=== PATIENT | female | born 1965 ===

== ENCOUNTER → 2021-02-22 10:50 | Outpatient (CLI) | payer OTHER, SELFPAY ==
--- NOTE | ~2021-02-22 | XR_ITS ---
EXAMINATION: XR chest 2V DATE: 02/22/2021 11:13 INDICATION: Unspecified asthma TECHNIQUE: PA and lateral views of the chest are obtained. COMPARISON: None available FINDINGS: The lungs are free of acute opacities. There is no pleural effusion or pneumothorax. The ca rdiomediastinal silhouette is normal. There is moderate thoracic spondylosis. IMPRESSION: 1. No acute cardiopulmonary abnormality. Reviewed, dictated and finalized at location A.
== END ==
DX: J45.909 Unspecified asthma, uncomplicated (principal)
CPT/HCPCS: 71046

== ENCOUNTER 2023-04-24 18:57 | Emergency (ER) | payer OTHER, SELFPAY ==
--- NOTE | ~2023-04-24 | CT_ITS ---
EXAMINATION: CT abdomen pelvis wo con DATE: 04/24/2023 19:55 INDICATION: L flank pain, LLQ pain TECHNIQUE: Computed tomography (CT) of the abdomen and pelvis was performed without intravenous contr ast. Automated exposure control and iterative reconstruction technique were employed. The dose-length product was 702.68 mGy-cm. COMPARISON: None. FINDINGS: Lower thorax: Unremarkable Liver: Normal. Biliary/Gallbladder: Cholelithiasis, without inflammatory change No bile duct dilation. Pancreas: No duct dilation. Pancreatic head lipoma. Spleen: Normal. Adrenals:No mass. Kidneys: Mild left pelviectasis. No suspicious mass. No right hydronephrosis. GI tract: No small or large bowel dilation. Normal appendix. Mesentery/Peritoneum: No ascites, mass, or free air. Retroperitoneum: No mass. Pelvis: 3 mm calcification in the distal left ureter. The bladder is empty. Absent uterus. Soft Tissues: Soft tissues and body wall unremarkable. Bones: No acute osseous finding. IMPRESSION: 3 mm distal left ureteral calcification causing very mild obstructive uropathy. Reviewed, dictated and finalized at location K. IC [employer]
[2023-04-24 19:04] VITALS: BP 149/108; PULSE 110; RESP 20; TEMP 36.3; O2SAT 100
[2023-04-24 19:26] VITALS: BP 164/86; PULSE 74; O2SAT 99
[2023-04-24 19:35] LABS: Basophils Absolute Auto 0.1 K/mm3 (0.0-0.1); Basophils Percent Auto 0.7 % (0.2-1.2); Eosinophils Absolute Auto 0.3 K/mm3 (0-0.3); Eosinophils Percent Auto 3.7 % (0-4.4); Hematocrit 44.9 % (37.0-47.0); Hemoglobin 14.3 g/dL (12.0-15.0); Immature Granulocyte Absolute 0.02 K/mm3 (0.00-0.031); Immature Granulocyte Percent A 0.3 % (0-0.5); Lymphocytes Absolute Auto 2.03 K/mm3 (0.9-3.2); Lymphocytes Percent Auto 27.1 % (18.3-44.2); Mean Corpuscular HGB Conc 31.8 g/dl (32-36); Mean Corpuscular Hemoglobin 27.1 pg (26-34); Mean Corpuscular Volume 85.2 fl (80-100); Mean Platelet Volume 9.3 fl (7.4-10.4); Monocytes Absolute Auto 1.1 K/mm3 (0.1-0.6); Monocytes Percent Auto 14.2 % (2.6-8.5); Neutrophils Absolute Auto 4.1 K/mm3 (1.3-6.7); Platelet Count Result 223 k/mm3 (150-375); Red Blood Count 5.27 M/mm3 (4.2-5.4); Red Cell Distribution Width 12.7 % (11.5-14.5); White Blood Count 7.5 K/mm3 (4.5-10.0)
[2023-04-24 19:45] LABS: Alanine Aminotransferase 26 U/L (6-35); Albumin Level 4.3 g/dL (3.5-5.1); Alkaline Phosphatase 83 U/L (38-126); Anion Gap 10 mmol/L (8-16); Aspartate Amino Transferase 33 U/L (14-36); Bilirubin,Total 0.5 mg/dL (0.2-1.3); Blood Urea Nitrogen 17 mg/dL (7-17); Calcium 9.1 mg/dL (8.4-10.2); Carbon Dioxide 23 mmol/L (22-30); Chloride 109 mmol/L (98-107); Estimated CRCL calculation 81 ml/min; Estimated Glomerular Filt Rate > 60; Glucose 97 mg/dL (65-110); Lipase 53 U/L (23-300); Potassium 4.1 mmol/L (3.4-5.0); Sodium 142 mmol/L (137-145)
--- NOTE | 2023-04-24 20:00 | PC.NURSE ---
Pt refused medications due to not having any nausea or pain at the moment. MD tapia.
--- NOTE | 2023-04-24 20:02 | ED.ABDPAIN ---
HPI - Abdominal Pain General Chief Complaint: Abdominal Pain Stated Complaint: LLQ and L lower back pain Time Seen by Provider: 04/24/23 19:09 Source: patient Mode of arrival: ambulatory Limitations: no limitations History of Present Illness HPI narrative: Patient is a 58-year-old female who presents the ED with report of left-sided abdominal and flank pain. Patient reports the pain began suddenly around 6:00 p.m. today after getting out of shower. Pain has been constant since then. Radiates from her left mid back around to her left-sided abdomen. Patient denies history of similar pain. She does report a history of kidney stones 30 years ago. Patient reports nausea, denies vomiting. Denies diarrhea, constipation, dysuria, hematuria. She does report URI symptoms including fever and cough for the last 2 days. She did take Advil earlier today. Related Data Allergies Allergy/AdvReac Type Severity Reaction Status Date / Time No Known Allergies Allergy Verified 04/24/23 21:05 Review of Systems Review of Systems: CONSTITUTIONAL: See HPI. RESPIRATORY: See HPI. GASTROINTESTINAL: See HPI. GENITOURINARY: Denies dysuria or hematuria. MUSCULOSKELETAL: See HPI. NEUROLOGIC: Denies headache, dizziness, numbness, or weakness. All systems reviewed & are unremarkable except as noted in HPI and below Exam Narrative: GENERAL: Well appearing, obese with BMI of 31.0, non-toxic, in no acute distress. HEAD: Normocephalic, atraumatic. RESPIRATORY: Airway patent, respirations nonlabored. Clear to auscultation bilaterally, no rales, rhonchi, wheezing. CARDIOVASCULAR: Regular rate and rhythm without murmurs, rubs, or gallops. ABDOMINAL: Soft, mild tenderness palpation in left lower quadrant. No rebound, nondistended. Normoactive BS. MUSCULOSKELETAL: Moves all extremities. No gross deformities. Mild tenderness to palpation throughout left lower lumbosacral region. No midline spinal tenderness. SKIN: Warm, dry, normal color. NEURO: A&O X3. Speech clear. Cranial nerves II-XII grossly intact. No ataxic movements. PSYCHIATRIC: Appropriate mood and affect. Normal interaction. Course Vital Signs Vital signs: Vital Signs Temperature 97.4 F L 04/24/23 19:04 Pulse Rate 110 H 04/24/23 19:04 Respiratory Rate 20 04/24/23 19:04 Blood Pressure 149/108 H 04/24/23 19:04 Pulse Oximetry 100 04/24/23 19:04 Oxygen Delivery Room Air 04/24/23 19:04 Temperature 97.4 F L 04/24/23 19:04 Pulse Rate 74 04/24/23 19:26 Respiratory Rate 20 04/24/23 19:04 Blood Pressure 164/86 H 04/24/23 19:26 Pulse Oximetry 99 04/24/23 19:26 Oxygen Delivery Room Air 04/24/23 19:04 MDM - Abdominal Pain MDM Narrative Medical decision making narrative: Patient presented to ED with left flank and abdominal pain onset today. Associated with nausea, no other significant associated symptoms. Reporting URI symptoms for last 2 days. Vitals stable upon arrival. Patient in no acute distress upon my evaluation. CBC without leukocytosis. CMP unremarkable. UA with moderate blood, 2+ leuk esterase, 21-[address] abdomen pelvis obtained and showing 3 mm distal left ureteral stone. Mild obstructive uropathy. Attempted to provide patient with pain medication, nausea medication, fluids, however she refused all of these. States she is no longer having any pain or nausea. Resting comfortably. Will give dose of ceftriaxone in the ED given abnormal UA findings. Patient did report having fevers today in addition to 2 day history of URI symptoms. COVID testing resulted positive in the ED. This does likely explain the fevers. However, given presence of fevers, stone, UA findings, discussed case with Dr. Wilkes, urology, advised to send urine culture, place patient on Bactrim X3d, outpatient f/u. Discussed these recommendations with patient. She is in agreement with plan. Remains stable, no further pain. Given strict return precau
[2023-04-24 20:10] LABS: Appearance Urine Turbid (Clear); Bacteria Urine None Seen /hpf; Bilirubin Urine Negative (Negative); Blood Urine 3+ (Negative); Calcium Oxalate Crystals Urine Present /hpf; Color Urine Dark Yellow (Yellow); Glucose Urine UA Negative (Negative); Ketones Urine Trace mg/dL (Negative); Leukocyte Esterase Ur 2+ LEU/UL (Negative); Need Manual Microscopic Reviewed; Nitrate Urine Negative (Negative); Protein Urine 2+ mg/dL (Negative); RBC Urine >100 /hpf (0-2); Specific Grav Ur 1.029 (1.001-1.035); Squamous Epithelial Cell Urine Few /hpf (Few); WBC Urine 21-50 /hpf; pH Urine 5.5 (5.0-9.0)
[2023-04-24 20:15] LABS: Add Urine Microscopic? YES
[2023-04-24 20:38] LABS: Influenza A QL RT-PCR Negative (Negative); Influenza B QL RT-PCR Negative (Negative); RSV RNA, RT-PCR Negative (Negative); SARS-CoV-2 RNA PCR Positive (Negative)
[2023-04-24 22:27] VITALS: BP 128/77; PULSE 83; RESP 20; O2SAT 95
== END 2023-04-24 22:57 | disposition home or self-care (01) ==
LOC: ANHED 21:36
PROVIDERS: Emergency Provider Physician Assistant
DX: N20.1 Calculus of ureter (principal); R82.90 Unspecified abnormal findings in urine; U07.1 COVID-19
CPT/HCPCS: 36415; 74176; 80053; 81001; 83690; 85025; 87086; 87088; 87637; 96365; 99284; J0696

== ENCOUNTER 2023-05-15 17:31 | Emergency (ER) | payer OTHER, SELFPAY ==
[2023-05-15 17:59] VITALS: BP 135/91; PULSE 90; RESP 16; TEMP 36.6; O2SAT 99
--- NOTE | 2023-05-15 18:22 | ED.URI ---
HPI - URI/Sore Throat General Chief Complaint: Upper Respiratory Infection Stated Complaint: Cough and Fever Time Seen by Provider: 05/15/23 17:52 Source: patient and RN notes reviewed Mode of arrival: ambulatory Limitations: no limitations History of Present Illness HPI Narrative: Patient presents today complaining of a 2 day history of cough, body aches, fever up to 102. She has been taking Advil with some relief. Reports she had COVID-19 2 weeks ago. Has been sick with similar symptoms and has tested positive for influenza A. Related Data Allergies Allergy/AdvReac Type Severity Reaction Status Date / Time No Known Allergies Allergy Verified 05/15/23 17:41 Review of Systems Review of Systems: CONSTITUTIONAL: Denies chills, or sweats.+ body aches, fever EYES: Denies visual changes, redness, or discharge. ENT: Denies rhinorrhea, congestion, sore throat, or otalgia. CARDIOVASCULAR: Denies chest pain, palpitations, or edema. RESPIRATORY: Denies dyspnea.+ cough GASTROINTESTINAL: Denies abdominal pain, nausea, vomiting, or diarrhea. GENITOURINARY: Denies dysuria or hematuria. SKIN: Denies rash, itching, or wounds. MUSCULOSKELETAL: Denies back pain, joint pain, or myalgia. NEUROLOGIC: Denies headache, numbness, tingling, or weakness. PSYCH: Denies depression or anxiety. PMFSH Comments At time of signature, I have reviewed and agree with nursing past medical, surgical, social and family history unless otherwise noted. Please see nursing chart for further information. There is no relevant family history pertinent to the presenting complaint Exam Narrative: GENERAL: Mildly ill-appearing, well-nourished, and in no acute distress. HEAD: Normocephalic, atraumatic. EYES: EOMI. No redness or drainage. Conjunctivae normal. ENT: Mucous membranes pink and moist. Nares clear. No rhinorrhea. TMs normal bilaterally. Throat normal. Uvula midline. NECK: Normal AROM. Supple. No lymphadenopathy. CHEST: No respiratory distress. Clear to auscultation. HEART: Regular rate and rhythm. No murmur appreciated. EXTREMITIES: Normal range of motion. No edema. SKIN: Warm, dry, no rash. Capillary refill normal. Normal skin turgor. NEURO: No focal deficits. Alert and oriented x3. Gait steady. PSYCH: Normal affect. No signs of depression or anxiety. Course Course Level of Care: Express Care Visit Vital Signs Vital signs: Vital Signs Temperature 97.9 F 05/15/23 17:59 Pulse Rate 90 05/15/23 17:59 Respiratory Rate 16 05/15/23 17:59 Blood Pressure 135/91 H 05/15/23 17:59 Pulse Oximetry 99 05/15/23 17:59 Oxygen Delivery Room Air 05/15/23 17:59 Temperature 97.9 F 05/15/23 17:59 Pulse Rate 90 05/15/23 17:59 Respiratory Rate 16 05/15/23 17:59 Blood Pressure 135/91 H 05/15/23 17:59 Pulse Oximetry 99 05/15/23 17:59 Oxygen Delivery Room Air 05/15/23 17:59 Reviewed MDM - URI/Sore Throat Differential Diagnosis Differential diagnosis: Likely upper respiratory infection, viral infection, bronchitis and influenza Medical Records Medical records narrative: Patient has tested negative for influenza, however, with her exposure at home is likely a false negative. She has been instructed on duration of illness and [id number] treatment as well as when to go to the ER if symptoms worsen. No prescription medications indicated at this time. Anticipatory guidance given. Lab Data Attestation: I reviewed the patient's lab results. Lab results narrative: Influenza negative Critical Care Time Critical Care Time Critical Care Time: No Discharge Plan Discharge Clinical Impression: Influenza-like illness Patient Disposition: Home, Self-Care Condition: Stable Instructions: Influenza (DC) Additional Instructions: You have tested negative for influenza today, however, it is likely that you have the virus. Continue [id number] medication for your symptoms. As discussed,
== END 2023-05-15 18:30 | disposition home or self-care (01) ==
PROVIDERS: Emergency Provider Nurse Practitioner
DX: J11.1 Influenza due to unidentified influenza virus with other respiratory manifestations (principal); Z86.16 Personal history of COVID-19
CPT/HCPCS: 87804; 99213; G0463